=== PATIENT | female | born 1995 | race Caucasian/White ===

== ENCOUNTER 2019-01-05 14:50 | Day surgery (SDC) | payer OTHER ==
[2019-01-04 17:42] VITALS: Ht 162.6 cm; Wt 81.8 kg
[2019-01-05] VITALS (13 sets, daily range): BP systolic 99–131; BP diastolic 54–79; PULSE 66–102; RESP 14–22
[~2019-01-05] VITALS: Ht 162.6 cm; Wt 81.8 kg
--- NOTE | 2019-01-05 16:00 | HPN ---
Date/Time of Note Date/Time of Note DATE: 01/05/19 TIME: 15:59 Interval H&P Admission Note Pt. seen H&P reviewed: No system changes NATHAN MALLOY Jan 05, 2019 16:00
[2019-01-05] MEDS ORDERED: CEFAZOLIN 2 GM/50 ML (PMX) 50 ML IVPB ONE (16:30)
[2019-01-05] MEDS ORDERED: LACTATED RINGER'S 1,000 ML IV SCH (16:30)
[2019-01-05] MEDS ORDERED: MIDAZOLAM 1 MG/ML 2 ML INJ ONE (16:59)
[2019-01-05] MEDS ORDERED: CEFAZOLIN 1 GM INJ ONE (16:59)
[2019-01-05] MEDS ORDERED: PROPOFOL 20 ML ONE (16:59)
[2019-01-05] MEDS ORDERED: ROPIVACAINE 0.5 % 30 ML VIAL ONE (17:00)
[2019-01-05] MEDS ORDERED: BUPIVACAINE 0.5% (SDV) 30 ML INJ ONE (17:18)
--- NOTE | 2019-01-05 17:27 | PREAC ---
Date/Time of Note Date/Time of Note DATE: 01/05/19 TIME: 17:24 Anesthesia Eval and Record Evaluation Time Pre-Procedure Interview DATE: 01/05/19 TIME: 17:24 Age 23 Sex female NPO: 8 hrs Preoperative diagnosis Left Middle finger metacarpal shaft Fracture Planned procedure Left Middle Finger metacarpal shaft fracture ORIF Past Medical History Past Medical History: None Surgery & Anesthesia Issues No known issue Meds Anticoagulation: No Beta Elham within 24 hr: No Reason Beta Elham not given: Pt. not on B-Elham Current Medications Lactated Ringer's 1,000 ml @ 0 mls/hr Q0M IV ; Start 01/05/19 at 16:30 Meds reviewed: Yes Allergies Coded Allergies: No Known Allergy (Unverified , 01/05/19) Allergies Reviewed: Yes Labs/Studies Labs Reviewed: Reviewed by anesthesiologist test: Negative Studies: ECG (n/a), CXR (n/a) Pre-procedure Exam Last vitals Vital Signs Date Temp Pulse Resp B/P (MAP) Pulse Ox O2 O2 Flow FiO2 Time Delivery Rate 01/05/19 97.7 87 16 110/69 96 Room Air 16:11 (83) Airway: Adequate mouth opening, Adequate thyromental dist Mallampati: Mallampati II Teeth: Normal Lung: Normal Heart: Normal ASA Physical Status ASA physical status: 1 Emergency: None Planned Anesthetic General/MAC: LMA Nerve block: Brachial plexus (left) Planned Pain Management Single shot nerve block, Parenteral pain med Pre-operative Attestations Prior to commencing anesthesia and surgery, the patient was re-evaluated, there was verification of: *The patient's identity *The results of appropriate recent lab work and preoperative vital signs *The above evaluation not changing prior to induction *Anesthetic plan, risk benefits, alternative and complications discussed with patient/family; questions answered; patient/family understands, accepts and wishes to proceed. АННА LORA MD Jan 05, 2019 17:27
[2019-01-05] MEDS ORDERED: OXYCODONE/ACETAMINOPHEN (5/325) TAB PO PRN ×2 (17:30)
[2019-01-05] MEDS ORDERED: LABETALOL HCL 20MG INJ IV PRN (17:30)
[2019-01-05] MEDS ORDERED: METOCLOPRAMIDE 10 MG INJ IV PRN (17:30)
[2019-01-05] MEDS ORDERED: ONDANSETRON 4 MG INJ IV PRN (17:30)
[2019-01-05] MEDS ORDERED: HYDROmorphONE 1 MG/5 ML IV SYRINGE IV PRN ×3 (17:30)
[2019-01-05] MEDS ORDERED: FENTAnyl 50 MCG/ML VIAL IV PRN ×3 (17:30)
[2019-01-05] MEDS ORDERED: EPHEDrine SULFATE 50 MG/5 ML SYG IV PRN (17:30)
[2019-01-05] MEDS ORDERED: DEXAMETHASONE 4 MG/ML 5 ML INJ ONE (18:13)
[2019-01-05] MEDS ORDERED: KETOROLAC 30 MG INJ ONE (18:13)
[2019-01-05] MEDS ORDERED: METOCLOPRAMIDE 10 MG INJ ONE ×2 (18:13→19:01)
[2019-01-05] MEDS ORDERED: ONDANSETRON 4 MG INJ ONE ×2 (18:13→19:34)
[2019-01-05] MEDS ORDERED: ROCURONIUM 50 MG INJ ONE (18:37)
[2019-01-05] MEDS ORDERED: GLYCOPYRROLATE 0.4 MG INJ ONE (18:37)
[2019-01-05] MEDS ORDERED: NEOSTIGMINE 3 MG/3 ML SYRINGE ONE ×2 (18:37)
--- NOTE | 2019-01-05 18:44 | OPPN ---
Date/Time of Note Date/Time of Note DATE: 01/05/19 TIME: 18:43 Operative Report Preoperative Diagnosis left middle finger metacarpal shaft fracture Postoperative Diagnosis left middle finger metacarpal shaft fracture, subacute malunion Operation/Procedure Performed left middle finger metacarpal shaft fracture ORIF malunion/subacute Surgeon see signature line patient assistant none Anesthesia: general Estimated blood loss: 0 - 10 ml's Transfusion Required none Specimen none Grafts/Implants none Complications none NATHAN MALLOY Jan 05, 2019 18:44
--- NOTE | 2019-01-05 18:52 | PAC ---
Date/Time of Note Date/Time of Note DATE: 01/05/19 TIME: 18:51 Post-Anesthesia Notes Post-Anesthesia Note Last documented vital signs Vital Signs Date Temp Pulse Resp B/P (MAP) Pulse Ox O2 O2 Flow FiO2 Time Delivery Rate 01/05/19 98.0 87 16 110/69 96 Room Air 18:50 (83) Activity: WNL Respiratory function: WNL Cardiovascular function: WNL Mental status: Baseline Pain reasonably controlled: Yes Hydration appropriate: Yes Nausea/Vomiting absent: Yes АННА LORA MD Jan 05, 2019 18:52
--- NOTE | 2019-01-05 19:14 | OPR ---
DATE OF OPERATION: 01/05/2019 SURGEON: Fabio Marion MD ANESTHESIA: General plus peripheral nerve block. PREOPERATIVE DIAGNOSES: Left middle finger metacarpal shaft fracture, displaced, comminuted, subacut e, malunion. POSTOPERATIVE DIAGNOSES: Left middle finger metacarpal shaft fracture, displaced, comminuted, subacu te, malunion. PROCEDURE: Open reduction and internal fixation of left middle finger metacarpal shaft subacute frac ture, malunion. OPERATIVE FINDINGS: Displaced comminuted left middle finger metacarpal shaft fracture with callus fo rmation and multiple fragments. INDICATION FOR PROCEDURE: A 23-year-old female with injury in the left hand, was seen in clinic and diagnosed with displaced metacarpal fracture. We discussed the options and given displacement, the p atient elected to proceed with surgical intervention, understanding the risks and benefits. DESCRIPTION OF PROCEDURE: The patient was seen in the preoperative area and all further questions we re answered. Again, she gave informed consent, understanding the risks and benefits. She was taken to the operative suite and placed in supine position. The anesthesia team performed a peripheral ner ve block and the patient was placed under general anesthesia. Tourniquet was placed in the left uppe r extremity and left upper extremity was prepped with ChloraPrep stick and draped in usual sterile fa shion. Esmarch bandage was used to exsanguinate the extremity and tourniquet was inflated to 250 mmH g. Ancef 2 grams IV was given prior to tourniquet inflation. A longitudinal incision over the dorsa l aspect of the left middle finger was utilized with sharp dissection carried down through skin and s ubcutaneous tissue. The extensor tendon to the middle finger was dissected free and was retracted an d protected. The metacarpal shaft was visualized and there was a displaced fracture. A 15-blade kni fe was used to dissect the periosteum off the fracture fragments. There was found to be comminution and a free dorsal fragment as well as shortening of the digit. There was callus formation making mor e difficult to dissect free the fracture fragments. Careful dissection was carried out and the fract ure fragments were mobilized and reduced into a more anatomic position. A [employer] 2.0 mm cortical s crews were placed across the fracture fragments in order to lag them back into position. There was a lso some longitudinal instability which was fixed using 0.045 K-wire which was driven retrograde from the metacarpal head into the metacarpal base. X-ray imaging showed appropriate hardware placement a nd bony alignment. Wound was copiously irrigated and skin was closed with 5-0 nylon. A total of 4 s crews and 1 K-wire was placed. Xeroform was placed over the wound followed by sterile gauze, Webril and a short arm metacarpal cuff splint. Tourniquet was deflated after 39 minutes. The patient was a wakened from anesthesia. She was taken the postoperative suite in stable condition, tolerated proced ure well without complication. SPECIMENS: None. ESTIMATED BLOOD LOSS: 5 mL. COUNTS: Sponge, instrument and needle counts were correct. TOURNIQUET TIME: 39 minutes. CONDITION ON DISCHARGE: Stable. The patient was given a nonrefillable 5-day prescription for pain medication for surgery today. Statement on complexity: Please note that this case had increased complexity due to the standard met acarpal shaft fracture. There was comminution as well as callus formation which made mobilizing the fracture fragments more difficult as well as surgical fixation of the fracture fragments more difficu lt. This required increase skill and delicacy and preserving the fracture fragments as well as bring ing them back into a more anatomic alignment. This required increased procedure time compared to the standard surgery. Dictated By: FABIO MULLER/HU Conf#: [id number] DID#: [id number]
== END 2019-01-05 20:25 | disposition home or self-care (01) ==
LOC: SDS 14:50
PROVIDERS: ATTEND Orthopaedic Surgery Hand Surgery
DX: S62.32 Displaced fracture of shaft of other metacarpal bone (principal); X58.XXXD Exposure to other specified factors, subsequent encounter
CPT/HCPCS: 26615; 73130; J0690; J1100; J1885; J2250; J2405; J2710; J2765; J2795; J3010; Z7610

== ENCOUNTER 2019-02-16 09:40 | Day surgery (SDC) | payer OTHER ==
[2019-02-15 16:05] VITALS: BMI 29.6
[~2019-02-16] VITALS: Ht 162.6 cm; Wt 83.6 kg
[~2019-02-16 09:40] MED LIST: CEFAZOLIN 2 GM/50 ML (PMX) 50 ML IVPB ONE; LACTATED RINGER'S 1,000 ML IV SCH
--- NOTE | 2019-02-16 09:58 | HPN ---
Date/Time of Note Date/Time of Note DATE: 02/16/19 TIME: 09:57 Interval H&P Admission Note Pt. seen H&P reviewed: No system changes NATHAN MALLOY Feb 16, 2019 09:58
[2019-02-16 10:53] VITALS: Ht 162.6 cm; Wt 83.6 kg
[2019-02-16 10:56] VITALS: BP 123/77; PULSE 79; RESP 16
[2019-02-16] MEDS ORDERED: BUPIVACAINE 0.5% (SDV) 30 ML INJ ONE (12:15)
--- NOTE | 2019-02-16 12:21 | PREAC ---
Date/Time of Note Date/Time of Note DATE: 02/16/19 TIME: 12:19 Anesthesia Eval and Record Evaluation Time Pre-Procedure Interview DATE: 02/16/19 TIME: 12:19 Age 23 Sex female NPO: 8 hrs Preoperative diagnosis retained hardware left middle finger Planned procedure removal of hardware left middle finger metacarpal Past Medical History Past Medical History: Includes GI: Obesity Surgery & Anesthesia Issues No known issue Meds Anticoagulation: No Beta Elham within 24 hr: No Reason Beta Elham not given: Pt. not on B-Elham No Active Prescriptions or Reported Meds Current Medications Lactated Ringer's 1,000 ml @ 20 mls/hr Q24H IV Last administered on 02/16/19at 10:48; Admin Dose 20 MLS/HR; Start 02/16/19 at 07:00 Meds reviewed: Yes Allergies Coded Allergies: No Known Allergy (Unverified , 02/16/19) Allergies Reviewed: Yes Labs/Studies Labs Reviewed: Reviewed by anesthesiologist Result Diagram: 02/16/19 1025 02/16/19 1025 Laboratory Tests 02/16/19 10:25 test: Negative Pre-procedure Exam Last vitals Vital Signs Date Temp Pulse Resp B/P (MAP) Pulse Ox O2 O2 Flow FiO2 Time Delivery Rate 02/16/19 98.1 79 16 123/77 98 Room Air 10:56 (92) Airway: Adequate mouth opening, Adequate thyromental dist Mallampati: Mallampati I Teeth: Normal Lung: Normal Heart: Normal ASA Physical Status ASA physical status: 1 Emergency: None Planned Anesthetic General/MAC: LMA Planned Pain Management Parenteral pain med Pre-operative Attestations Prior to commencing anesthesia and surgery, the patient was re-evaluated, there was verification of: *The patient's identity *The results of appropriate recent lab work and preoperative vital signs *The above evaluation not changing prior to induction *Anesthetic plan, risk benefits, alternative and complications discussed with patient/family; questions answered; patient/family understands, accepts and wishes to proceed. OMAR WILSON Feb 16, 2019 12:21
[2019-02-16] MEDS ORDERED: PROPOFOL 20 ML ONE (12:28)
[2019-02-16] MEDS ORDERED: LIDOCAINE 2% (SDV) 5 ML INJ ONE (12:28)
[2019-02-16] MEDS ORDERED: CEFAZOLIN 1 GM INJ ONE (12:56)
--- NOTE | 2019-02-16 13:10 | OPPN ---
Date/Time of Note Date/Time of Note DATE: 02/16/19 TIME: 13:09 Operative Report Preoperative Diagnosis Left middle finger metacarpal deep retained hardware Postoperative Diagnosis Left middle finger metacarpal deep retained hardware Operation/Procedure Performed Removal of Left middle finger metacarpal deep retained hardware Surgeon see signature line visitor service assistant none Anesthesia: MAC Estimated blood loss: 0 - 10 ml's Transfusion Required none Specimen k wire Grafts/Implants none Complications none NATHAN MALLOY Feb 16, 2019 13:10
[2019-02-16] MEDS ORDERED: EPHEDrine 25 MG/5 ML SYG IV PRN (13:30)
[2019-02-16] MEDS ORDERED: hydrALAzine 20 MG INJ IV PRN (13:30)
[2019-02-16] MEDS ORDERED: OXYCODONE/ACETAMINOPHEN (5/325) TAB PO PRN ×2 (13:30)
[2019-02-16] MEDS ORDERED: ALBUTEROL 0.083% (NEB) 2.5 MG/3 ML AMP HHN PRN (13:30)
[2019-02-16] MEDS ORDERED: ONDANSETRON 4 MG INJ IV PRN (13:30)
[2019-02-16] MEDS ORDERED: FENTAnyl 50 MCG/ML VIAL IV PRN ×3 (13:30)
[2019-02-16] MEDS ORDERED: DIPHENHYDRAMINE 50 MG INJ IV PRN (13:30)
[2019-02-16] MEDS ORDERED: KETOROLAC 30 MG INJ IV PRN (13:30)
[2019-02-16] MEDS ORDERED: MEPERIDINE 25 MG INJ IV PRN (13:30)
[2019-02-16] MEDS ORDERED: LABETALOL HCL 20MG INJ IV PRN (13:30)
--- NOTE | 2019-02-16 13:43 | PAC ---
Date/Time of Note Date/Time of Note DATE: 02/16/19 TIME: 13:42 Post-Anesthesia Notes Post-Anesthesia Note Last documented vital signs Vital Signs Date Temp Pulse Resp B/P (MAP) Pulse Ox O2 O2 Flow FiO2 Time Delivery Rate 02/16/19 97.9 75 15 132/75 99 13:36 02/16/19 79 16 123/77 98 Room Air 10:56 (92) Activity: WNL Respiratory function: WNL Cardiovascular function: WNL Mental status: Baseline Pain reasonably controlled: Yes Hydration appropriate: Yes Nausea/Vomiting absent: Yes OMAR WILSON Feb 16, 2019 13:43
--- NOTE | 2019-02-16 13:49 | OPR ---
DATE OF OPERATION: 02/16/2019 SURGEON: Fabio Marion MD ANESTHESIA: Local MAC. PREOPERATIVE DIAGNOSIS: Left middle finger metacarpal with deep retained hardware. POSTOPERATIVE DIAGNOSIS: Left middle finger metacarpal with deep retained hardware. PROCEDURE: Removal of deep hardware, left middle finger. OPERATIVE FINDINGS: Deep retained hardware, left middle finger. INDICATION FOR PROCEDURE: A 23-year-old female with injury to left hand who had surgical fixation of left middle finger metacarpal fracture. She had deep retained K-wire and we discussed the options a nd the patient elected to proceed with removal of hardware in the operating room, understanding the r isks and benefits. DESCRIPTION OF PROCEDURE: The patient was seen in the preoperative area after all further questions were answered. Again, she gave informed consent, understanding risks and benefits. She was taken to the operative suite, placed in supine position. Sedation was administered and Ancef 2 grams IV. To urniquet was placed on left upper extremity and left upper extremity was prepped with ChloraPrep stic k and draped in usual sterile fashion. Esmarch bandage was used to exsanguinate the extremity and to urniquet was inflated to 250 mmHg. A 10 mL volume of 0.5% Marcaine was injected at the base, left mi ddle to achieve local anesthesia. After adequate anesthesia, the x-ray machine was brought in and th e deep buried K-wire was localized under x-ray imaging. A 15-blade knife was used to make incision t hrough skin and subcutaneous tissue and tenotomy scissor was used to divide the soft tissues overlyin g the K-wire. The K-wire was identified deeply and the needle minibus driver was used to remove the deep bur ied K-wire. X-ray imaging showed appropriate bony alignment and additional hardware at the shaft of the metacarpal which was stable. The K-wire had been removed. Wound was copiously irrigated. Skin was closed with 5-0 nylon. Xeroform was placed over the wound followed by sterile gauze, Webril and bias bandage. Tourniquet was deflated after 7 minutes. The patient was awakened from anesthesia. S he was taken to postoperative suite in stable condition, tolerated procedure well without complicatio ns. SPECIMENS: Left middle finger hardware. ESTIMATED BLOOD LOSS: 5 mL. COUNTS: Sponge, instrument, needle counts correct. TOURNIQUET TIME: 7 minutes. CONDITION ON DISCHARGE: Stable. The patient will be given nonrefillable 5-day prescription pain medication for surgery today. Dictated By: FABIO MULLER/HU Conf#: [id number] DID#: [id number]
[2019-02-16 13:50] VITALS: BP 122/75; PULSE 76; RESP 16
--- NOTE | 2019-02-16 14:21 | RADRPT ---
Vent Rate: 80 bpm RR Interval: [address] Interval: 132 msec QRS Duration: 77 msec QT Interval: 373 msec QTC Interval: 431 msec P-R-T [place]: 17 - 55 - 42 degrees Sinus rhythm...normal P axis, V-rate 50- 99 Electronically Signed By: Mikal Young
== END 2019-02-16 14:40 | disposition home or self-care (01) ==
LOC: SDS 09:40
PROVIDERS: ATTEND Orthopaedic Surgery Hand Surgery
DX: Z47.2 Encounter for removal of internal fixation device (principal)
CPT/HCPCS: 26320; 71045; 73130; 80048; 81001; 85025; 85610; 85730; 88300; 93005; J0690; Z7512; Z7610